=== PATIENT | male | born 1950 ===

== ENCOUNTER 2016-08-11 07:50 | Day surgery (SDC) | payer MEDICARE ==
[~2016-08-11 07:50] MED LIST: Buffered Lidocaine 0.9% SYRIN* 5 ML/SYR SYRINGE INTRADERM ONE; Buffered Lidocaine 0.9% SYRIN* 5 ML/SYR SYRINGE ONE; ceFAZolin 2 GM PREMIX(*) 2 GM/50 ML BAG IVPB ONE
[2016-08-11] MEDS ORDERED: Midazolam* 1 MG/ML 2 ML VIAL (2 MG) ONE (09:48)
[2016-08-11] MEDS ORDERED: Scopolamine 1.5 mg* PATCH ONE (10:07)
[2016-08-11] MEDS ORDERED: Bupivacaine 0.25% W/EPI* 50 ML VIAL ONE (10:13)
[2016-08-11] MEDS ORDERED: Dexamethasone IV* 4 MG/ML 1 ML (4 MG) ONE (10:15)
[2016-08-11] MEDS ORDERED: Ketorolac INJ* 30 MG/ML 1 ML VIAL ONE (10:15)
[2016-08-11] MEDS ORDERED: Ondansetron INJ* 2 MG/ML VIAL ONE (10:15)
[2016-08-11] MEDS ORDERED: Propofol* 10 MG/ML 20 ML BTL IV PUSH ONE (10:15)
[2016-08-11] MEDS ORDERED: Rocuronium* 10 MG/ML VIAL ONE (10:15)
[2016-08-11] MEDS ORDERED: Lidocaine 2% PF * 5 ML VIAL ONE (10:15)
[2016-08-11] MEDS ORDERED: Famotidine IV* 10 MG/ML 2 ML (20 mg) ONE (10:15)
[2016-08-11] MEDS ORDERED: fentaNYL* 50 MCG/ML 2 ML VIAL (100 MCG VIAL) ONE (10:16)
[2016-08-11] MEDS ORDERED: KETAMINE HCL* 50 MG/ML 10 ML VIAL ONE (10:29)
[2016-08-11] MEDS ORDERED: Ondansetron INJ* 2 MG/ML VIAL IV PRN (10:43)
[2016-08-11] MEDS ORDERED: fentaNYL* 50 MCG/ML 2 ML VIAL (100 MCG VIAL) IV PRN (10:43)
[2016-08-11] MEDS ORDERED: PROCHLORPERAZINE INJ 5 MG/ML 2 ML VIAL IV PRN (10:43)
[2016-08-11] MEDS ORDERED: Acetaminophen TAB* 325 MG PO PRN (10:43)
[2016-08-11] MEDS ORDERED: DiMENhydriNATE IV* 50 MG/ML VIAL IV PUSH PRN (10:43)
[2016-08-11] MEDS ORDERED: EPHEDrine (Pressors)* 50 MG/ML VIAL ONE (11:30)
[2016-08-11] MEDS ORDERED: Glycopyrrolate IV* 0.2 MG/ML 1 ML VIAL ONE (11:30)
--- NOTE | 2016-08-11 11:44 | SURGPN ---
Brief Operative Note - Surgery Procedures: Procedures Pre-OP Diagnoses: Right inguinal hernia Post-op Diagnosis: same Procedure: Laparoscopic right inguinal hernia repair with mesh Surgeon: Vidhya Asst: Lou Anethesia: ANGELA EBL: minimal IVF: 1400cc LR Specimen: none Drains: none
[2016-08-11 14:24] VITALS: BP 113/67
--- NOTE | 2016-08-11 15:41 | OP ---
CC: Noreen Brewer MD, [facility] * DATE OF OPERATION: 08/11/16 - [facility] DATE OF : 48. SURGEON: Bereket Kee MD. [employer] VEHICLE DRIVER: Lisa Blake NP. ANESTHESIOLOGIST: Dr. Flores. ANESTHESIA: General. PRE-OP DIAGNOSIS: Right inguinal hernia. POST-OP DIAGNOSIS: Right inguinal hernia. PROCEDURE: Laparoscopic right inguinal hernia repair with mesh. ESTIMATED BLOOD LOSS: Minimal. FLUIDS: 1600 cc crystalloid fluid given. SPECIMENS: None. DESCRIPTION OF PROCEDURE: Patient was identified in the preoperative area, case discussed, consent signed. Patient was marked appropriately, brought to the operating room, placed on the operating room table in a supine position. Preoperative antibiotics were given. Sequential devices were placed in bilateral lower extremities. General anesthesia was induced. The patient's abdomen was prepped and draped after clipping of hair. A time-out was performed. An infraumbilical incision was made. This was deepened down to the anterior fascia on the right, which was incised. We made attempt to get into the preperitoneal plane, but it proved difficult as we are not sure if we were in some umbilical hernia were we could not do blunt dissection into the space. For this reason, just inferior to the initial incision over the anterior fascia we made a second incision. Rectus pillar was retracted laterally and preperitoneal plane was then easily and bluntly, dissected with surgeons finger , right down to the pubic symphysis. A 12-mm trocar was inserted at this site and the preperitoneal plane was allowed to insufflate the pressure of 12 mmHg. A laparoscope was inserted through this and a blunt dissection with the was then utilized to see Nikita's ligament on the right and also free up loose areolar tissue. Next, 2 additional 5 mm trocars then placed in the lower midline, and attention was then turned towards his right side. The Nikita's ligament on both left and right were cleared off. A direct hernia was identified. This was gently retracted and reduced, exposing approximately 2.5 cm direct hernial defect. Next, the epigastric vessels were maintained anteriorly. Perivessel fat was bluntly dissected from the site and we could now enter into Bogros space laterally. Next, the spermatic structures were skeletonized. There was no indirect hernia sac at this site. The peritoneal edge at the site was bluntly freed up from the structures, but was not a discrete sac. Next, a medium sized Bard 3-D mesh was opened up. This was a right-sided mesh. It was placed into the preperitoneal plane, allowed on unfurl, and tagged appropriately at the Nikita's ligament medially and just above the pubic symphysis and also laterally taking care not to staple onto the triangle of doom. The mesh was intact covering the full myopectineal orifice. There is no stretching or wrinkling. The preperitoneal plane was allowed to collapse. Trocar was removed under direct vision. This was not clear if we obtained pneumoperitoneum at this site, because there was some issue with bradycardia during insufflation. For this reason I lifted the umbilicus anteriorly and a Veress needle was inserted into the abdominal cavity. Appropriately with proper snapping and showed no evidence of free flow of gas. The incisions at the anterior fascia were reapproximated with interrupted 0- Polysorb sutures. Injection lidocaine was carried out. Hemostasis was excellent and all 3 skin incisions are reapproximated with 4-0 Monocryl subcuticular sutures followed by Steri-Strips and sterile dressing. [id number]/[facility] #: [id number] ISAMAR
[2016-08-14] MEDS ORDERED: Scopolomine PATCH Remove* 1 NOTE MISC PATCH OFF ONE (10:44)
== END 2016-08-11 14:26 | disposition home or self-care (01) ==
LOC: OR 07:50
PROVIDERS: ATTEND Surgery
DX: K40.90 Unilateral inguinal hernia, without obstruction or gangrene, not specified as recurrent (principal); E78.00 Pure hypercholesterolemia, unspecified; Z79.82 Long term (current) use of aspirin
CPT/HCPCS: A9270-GY; C1781; J0690; J1100; J1885; J2250; J2405; J2704; J3010